=== PATIENT | female | born 1970 | race Caucasian/White ===

== ENCOUNTER 2019-04-16 11:43 | Emergency (ER) | payer MEDICAID ==
[~2019-04-16] VITALS: Ht 172.7 cm; Wt 60.0 kg
[2019-04-16] MEDS ORDERED: erythromycin ophthalmic ointment 1gm tube EACHEYE ONE (12:25)
[2019-04-16] MEDS ORDERED: proparacaine 0.5% ophthalmic drops 15ml EACHEYE ONE (12:25)
[2019-04-16] MEDS ORDERED: ERYT1OIN6 EACHEYE (13:17)
[2019-04-16 14:02] VITALS: BP 132/90
== END 2019-04-16 14:04 | disposition home or self-care (01) ==
LOC: ER 11:44
DX: H10.9 Unspecified conjunctivitis (principal); Z59.0 Homelessness; Z88.2 Allergy status to sulfonamides
CPT/HCPCS: 99283